=== PATIENT | male | born 1985 | race Caucasian/White ===

== ENCOUNTER 2021-09-06 18:31 | Emergency (ER) | payer MEDICAID, SELFPAY ==
[2021-09-06 18:41] VITALS: BP 158/105; PULSE 97; RESP 18; TEMP 36.8; O2SAT 99; BMI 22.4
--- NOTE | 2021-09-06 18:47 | ED_ITS ---
Documented by User: LARISA Chakraborty 09/06/21 19:54 HPI - Wound/Laceration General: Chief Complaint: Wound/Laceration Stated Complaint: Injury Left Arm Time Seen by Provider: 09/06/21 18:45 History of Present Illness: 36-year-old male patient comes in today with injury to the left upper arm. Patient was cutting a rope when his knife slipped causing him to stab himself in the left upper arm. Patient has normal sensation and range of motion of the arm although limited by pain. Patient cannot recall his last tetanus shot. Patient denies any chronic medical problems. Patient does smoke cigarettes and marijuana. Review of Systems General: Reports: 10 or more systems reviewed and unremarkable except in HPI and below Skin/Breast: Reports: new lesions (Laceration left upper arm) Physical Exam Const: COMMON NORMALS: alert HENMT: COMMON NORMALS: atraumatic HEAD & SCALP: atraumatic Neck/C-Spine: COMMON NORMALS: full ROM Resp: COMMON NORMALS: normal respiratory effort Cardio: COMMON NORMALS: regular rate and regular rhythm RATE: regular rate RHYTHM: regular rhythm Extremity: COMMON NORMALS: full ROM LEFT UPPER EXTREMITY: Yes upper arm (3 cm laceration to the left upper arm, 1 cm muscle laceration) Left upper arm: Yes inspection, Yes palpation and Yes neurovascular exam Neuro: SENSORIUM/ORIENTATION: Yes alert Psych: COMMON NORMALS: cooperative Skin: COMMON NORMALS: no rashes or lesions noted GENERAL SKIN EXAM: no rashes or lesions noted Procedures Laceration Laceration 1: Site: upper extremity Side (If applicable): left Size (cm): 3 Description: linear Depth: involves muscle layer Local Anesthetic: lidocaine 1% Amount of anesthesia used (mL): 6 Pre-repair: wound explored and irrigated extensively Skin layer closed with: nylon Size (cm): 4-0 Number of sutures: 4 Technique: horizontal mattress Muscle layer closed with: vicryl Size: 4-0 Number of sutures: 2 Technique: horizontal mattress Course Vital Signs: Vital signs: Vital Signs Temperature 98.2 F 09/06/21 18:41 Pulse Rate 97 09/06/21 18:41 Respiratory Rate 18 09/06/21 18:41 Blood Pressure 158/105 09/06/21 18:41 Pulse Oximetry 99 09/06/21 18:41 MDM - Wound/Laceration Medical Decision Making 36-year-old male patient comes in today with injury to the left upper arm. On exam patient has a vertical laceration that is approximately 3 cm long, there is also a 1 and half centimeter vertical laceration to the biceps muscle. Patient has normal range of motion of the arm and sensation distally. No foreign body is noted. Differential diagnosis includes need for prophylaxis tetanus, need for prophylaxis antibiotic, foreign body, laceration. Wound was closed with 4 horizontal mattress sutures. Wound to the muscle was closed with 2 horizontal mattress sutures. Patient tolerated well. Patient will continue on cephalexin 500 twice a day for 7 days. Patient was recommended to have the external sutures removed in 7 to 10 days. Recommend monitoring for signs of infection or new concerns. Patient reported understanding agreed to plan. Discharge Plan Discharge Patient Disposition: Home Clinical Impression: Laceration of left upper arm Qualifiers: Encounter type: initial encounter Qualified Code(s): S41.112A - Laceration without foreign body of left upper arm, initial encounter Condition: Stable Prescriptions: New cephalexin 500 mg capsule 500 mg PO BID 7 Days Qty: 14 0RF hydrocodone-acetaminophen 5-325 mg tablet 1 tab PO TID PRN (Reason: pain) Qty: 7 0RF Discharge Orders: Discharge ED (Routine); Ordered 09/06/21 Ordered By: Agustin Paz Discharge Diet: Usual diet Discharge Activity: Increase activity as tolerated Patient Instructions: Laceration (ED), Opioid Safety Activity Restrictions/Additional Instructions: Keep wound clean and dry. Is very important to keep the wound as dry as possible for the next 2 days. Light activity for the next 7 days. After that increase activity than normal. Use acetaminophen and ibuprofen to control pain. Use hydrocodone for severe pain. Take antibiotics cephalexin twice a day for the next 7 days. Sutures can come out in 7 to 10 days. Return to the emergency department for new concerns. Stand Alone Forms: Work/School Release Coding Level of Care Code ED [employer] Exam Comprehensive Documented by User: Ric AshDO 09/06/21 20:42 HPI - Wound/Laceration General: Chief Complaint: Wound/Laceration Stated Complaint: Injury Left Arm Time Seen by Provider: 09/06/21 18:45 Course Vital Signs: Vital signs: Vital Signs Temperature 98.2 F 09/06/21 18:41 Pulse Rate 97 09/06/21 18:41 Respiratory Rate 18 09/06/21 18:41 Blood Pressure 158/105 09/06/21 18:41 Pulse Oximetry 99 09/06/21 18:41 MDM - Wound/Laceration Medical Decision Making 36-year-old male patient comes in today with injury to the left upper arm. On exam patient has a vertical laceration that is approximately 3 cm long, there is also a 1 and half centimeter vertical laceration to the biceps muscle. Patient has normal range of motion of the arm and sensation distally. No foreign body is noted. Differential diagnosis includes need for prophylaxis tetanus, need for prophylaxis antibiotic, foreign body, laceration. Wound was closed with 4 horizontal mattress sutures. Wound to the muscle was closed with 2 horizontal mattress sutures. Patient tolerated well. Patient will continue on cephalexin 500 twice a day for 7 days. Patient was recommended to have the external sutures removed in 7 to 10 days. Recommend monitoring for signs of infection or new concerns. Patient reported understanding agreed to plan. This patient was originally seen by LARISA Ashley.? I agree with his history, evaluation, and treatment. Discharge Plan Discharge Patient Disposition: Home Clinical Impression: Laceration of left upper arm Qualifiers: Encounter type: initial encounter Qualified Code(s): S41.112A - Laceration without foreign body of left upper arm, initial encounter Condition: Stable Prescriptions: New cephalexin 500 mg capsule 500 mg PO BID 7 Days Qty: 14 0RF hydrocodone-acetaminophen 5-325 mg tablet 1 tab PO TID PRN (Reason: pain) Qty: 7 0RF Discharge Orders: Discharge ED (Routine); Ordered 09/06/21 Ordered By: Agustin Paz Discharge Diet: Usual diet Discharge Activity: Increase activity as tolerated Patient Instructions: Laceration (ED), Opioid Safety Activity Restrictions/Additional Instructions: Keep wound clean and dry. Is very important to keep the wound as dry as possible for the next 2 days. Light activity for the next 7 days. After that increase activity than normal. Use acetaminophen and ibuprofen to control pain. Use hydrocodone for severe pain. Take antibiotics cephalexin twice a day for the next 7 days. Sutures can come out in 7 to 10 days. Return to the emergency department for new concerns. Stand Alone Forms: Work/School Release Coding Level of Care Code ED [employer] for [employer] Exam Comprehensive
[2021-09-06] MEDS: tetanus-dipt-pertussis 0.5 mL SDV IM (19:18)
[2021-09-06] MEDS: cephALEXin 500 mg Capsule PO (19:21)
[2021-09-06] MEDS: HYDROcodone-acetaminophen 7.5-325 mg Tablet 1 TAB PO (19:21)
== END 2021-09-06 19:44 | disposition home or self-care (01) ==
PROVIDERS: Emergency Provider Nurse Practitioner Family
DX: S41.112A Laceration without foreign body of left upper arm, initial encounter (principal); W26.0XXA Contact with knife, initial encounter; Z23 Encounter for immunization
CPT/HCPCS: 12032; 90471; 90715; 99283